=== PATIENT | female | born 1955 | race African-American/Black ===

== ENCOUNTER 2018-01-29 15:51 | Emergency (ER) | payer MEDICAID, OTHER ==
[~2018-01-29] VITALS: Ht 160 cm; Wt 94.5 kg
[2018-01-29 16:15] VITALS: BP 131/86
[2018-01-29] MEDS ORDERED: LIDOCAINE HCL 1% 20ML VIAL (Pyxis) INJ INFIL ONE (17:45)
== END 2018-01-29 19:30 | disposition home or self-care (01) ==
LOC: ER 15:51
DX: S51.811A Laceration without foreign body of right forearm, initial encounter (principal); S91.312A Laceration without foreign body, left foot, initial encounter; S00.83XA Contusion of other part of head, initial encounter; F17.210 Nicotine dependence, cigarettes, uncomplicated; X99.1XXA Assault by knife, initial encounter; Y93.89 Activity, other specified; Y92.018 Other place in single-family (private) house as the place of occurrence of the external cause
CPT/HCPCS: 12001; 70450; 99284; J3490

== ENCOUNTER 2018-02-01 14:15 | Emergency (ER) | payer MEDICAID ==
[~2018-02-01] VITALS: Ht 165.1 cm; Wt 88.0 kg
[2018-02-01 14:48] VITALS: BP 169/95
[2018-02-01] MEDS ORDERED: SULFAMETHOXAZOLE/TRIMETHOPRIM 800/160MG TABLET PO ONE (18:15)
[2018-02-01] MEDS ORDERED: CEPHALEXIN 250MG CAPSULE PO ONE (18:15)
[2018-02-01] MEDS ORDERED: ACETAMINOPHEN 500MG TABLET PO ONE (18:15)
== END 2018-02-01 18:31 | disposition home or self-care (01) ==
LOC: ER 14:15
DX: T81.49XA Infection following a procedure, other surgical site, initial encounter (principal)
CPT/HCPCS: 99284

== ENCOUNTER 2018-02-07 10:33 | Emergency (ER) | payer MEDICAID ==
[~2018-02-07] VITALS: Ht 167.6 cm; Wt 91.0 kg
[2018-02-07] MEDS ORDERED: KETOROLAC 30MG/ML VIAL IV STA (11:30)
[2018-02-07] MEDS ORDERED: SODIUM CHLORIDE 0.9% 1,000 ML IV ONE (11:30)
[2018-02-07 12:16] LABS: BASOPHILS % 1.2 % (0.0-2.0); EOSINOPHILS % 4.9 % (0.0-5.0); HEMATOCRIT. 40.4 % (36.0-48.0); HEMOGLOBIN. 13.5 g/dL (12.0-16.0); LYMPHOCYTES % 53.3 % (20.0-50.0); MEAN CORPUSCULAR VOLUME 98.5 fL (81.0-99.0); MEAN PLATELET VOLUME 8.8 fl (7.4-10.4); MONOCYTES % 10.4 % (2.0-8.0); NEUTROPHILS % 30.2 % (40.0-76.0); PLATELET 205 x1000/uL (130-400); RED CELL DISTRIBUTION WIDTH 15.2 % (11.6-14.6)
[2018-02-07 12:24] LABS: CHLORIDE 108 mEq/L (98-107)
[2018-02-07 15:02] VITALS: BP 154/68
== END 2018-02-07 15:04 | disposition home or self-care (01) ==
LOC: ER 10:51
DX: J06.9 Acute upper respiratory infection, unspecified (principal); L03.90 Cellulitis, unspecified; R07.89 Other chest pain; S00.03XD Contusion of scalp, subsequent encounter; Z48.00 Encounter for change or removal of nonsurgical wound dressing; J45.909 Unspecified asthma, uncomplicated; F17.200 Nicotine dependence, unspecified, uncomplicated; W01.0XXD Fall on same level from slipping, tripping and stumbling without subsequent striking against object, subsequent encounter
CPT/HCPCS: 36415; 70450; 71045; 80053; 83880; 84484; 85025; 87804; 93005; 96361; 96374; 99284; J1885; J7030

== ENCOUNTER 2018-04-03 11:36 | Emergency (ER) | payer MEDICAID ==
[~2018-04-03] VITALS: Ht 160 cm; Wt 91.0 kg
[2018-04-03] MEDS ORDERED: IBUPROFEN 400MG TABLET PO ONE (14:45)
[2018-04-03 16:10] VITALS: BP 128/88
== END 2018-04-03 16:11 | disposition home or self-care (01) ==
LOC: ER 12:39
DX: S20.211A Contusion of right front wall of thorax, initial encounter (principal); J45.909 Unspecified asthma, uncomplicated; F17.200 Nicotine dependence, unspecified, uncomplicated; Z98.890 Other specified postprocedural states; W07.XXXA Fall from chair, initial encounter; Y93.89 Activity, other specified; Y92.89 Other specified places as the place of occurrence of the external cause; Y99.8 Other external cause status
CPT/HCPCS: 71045; 99283